=== PATIENT | female | born 1970 | race Caucasian/White ===

== ENCOUNTER 2022-12-21 21:10 | Emergency (ER) | payer OTHER ==
[2022-12-21] MEDS ORDERED: LIDOCAINE 1% W/EPI 1:100,000 50 ML MDV ONE (22:36)
--- NOTE | 2022-12-21 22:48 | EDPHYS ---
Physician Documentation [facility] Name: Leidy Texieira Age: 52 yrs Sex: Female : 1970 Arrival Date: 12/21/2022 Time: 21:10 Bed 11 Private MD: ED Physician Giorgi Rodriguez HPI: 12/21 21:36 This 52 yrs old Female presents to ER via Ambulatory with complaints of Hemorrhoids. jmm 21:36 The patient presents to the emergency department with Swelling. Onset: The jmm symptoms/episode began/occurred gradually. Is a 52-year-old female with history of hypertension the presents emerged part with complaints of rectal pain which has been ongoing for approximately a month that she attributes to a hemorrhoid. Denies fever or chills. Denies vomiting.. 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 - Social history:: Smoking status: Patient denies any tobacco usage or history of. ROS: 21:36 Constitutional: Negative for fever, chills, and weight loss, Cardiovascular: Negative jmm for chest pain, palpitations, and edema, Respiratory: Negative for shortness of breath, cough, wheezing, and pleuritic chest pain. 21:36 Abdomen/GI: Positive for rectal pain. 21:36 All other systems are negative. Exam: 21:36 Constitutional: This is a well developed, well nourished patient who is awake, alert, jmm and in no acute distress. Head/Face: atraumatic. Eyes: EOMI, no conjunctival erythema appreciated ENT: Moist Mucus Membranes Neck: Trachea midline, Supple Chest/axilla: Normal chest wall appearance and motion. Cardiovascular: Regular rate and rhythm. No edema appreciated Respiratory: Normal respirations, no respiratory distress appreciated 21:36 Back: Normal ROM Skin: General appearance color normal MS/ Extremity: Moves all extremities, no obvious deformities appreciated, no edema noted to the lower extremities Neuro: Awake and alert Psych: Behavior is normal, Mood is normal, Patient is cooperative and pleasant 21:36 Abdomen/GI: Inspection: obese Rectal exam: hemorrhoid(s), external, with inflammation. Vital Signs: 21:28 BP 143 / 57; Pulse 81; Resp 18; Temp 97.9(O); Pulse Ox 100% on R/A; Weight 90.72 kg; mb9 Height 5 ft. 8 in. ; Pain 9/10; 22:51 BP 138 / 69; Pulse 74; Resp 16; Pulse Ox 99% on R/A; mb9 21:28 Body Mass Index 30.41 (90.72 kg, 172.72 cm) 9 21:28 Pain Scale: Adult mb9 MDM: 21:36 Patient medically screened. [facility] 21:36 Differential diagnosis: hemorrhoids. Data reviewed: vital signs, nurses notes. I je considered the following discharge prescriptions or medication management in the emergency department Medications were administered in the Emergency Department. See MAR. ED course: 1 mL of lidocaine with epi was injected into the external hemorrhoid. Patient was able to tolerate the procedure well. Patient states having relief. Will treat with topical steroids and otherwise advised to follow-up with general surgery or gastroenterology for further evaluation. Administered Medications: 22:33 Drug: Lidocaine Infiltration (1 %) 20 ml Volume: 20 ml; Route: Infiltration; 9 Disposition: 12/22 07:18 Co-signature as Attending Physician, Giorgi Rodriguez MD I agree with the assessment sp4 and plan of care. I reviewed the patient's care provided by the Advanced Practice Provider and agree with the diagnosis and treatment plan. Disposition Summary: 12/21/22 22:47 Discharge Ordered Location: Home [facility] Condition: Stable [facility] Diagnosis - Residual hemorrhoidal skin tags [facility] Followup: [facility] - With: Hugh Rousseau MD - When: 2 - 3 days - Reason: Recheck today's complaints, Continuance of care, Re-evaluation by your physician Discharge Instructions: - Discharge Summary Sheet [facility] - Hemorrhoids [facility] Forms: - Medication Reconciliation Form [facility] - Thank You Letter addie - Antibiotic Education [facility] - Prescription Opioid Use [facility] - Patient Portal Instructions.htm [facility] Prescriptions: - Anusol-HC 2.5 % Topical cream with perineal applicator - apply 1 application by RECTAL route 4 times per day for 1 week; 1 unit; jmm Refills: 0, Product Selection Permitted Signatures: Frank Rosenthal PA PA jmm Breneman, Mary Beth, RN RN mb9 Giorgi Rodriguez MD MD sp4
--- NOTE | 2022-12-21 22:48 | ER ---
Nurse's Notes [facility] Name: Leidy Teixeira Age: 52 yrs Sex: Female : 1970 Arrival Date: 12/21/2022 Time: 21:10 Bed 11 Private MD: Diagnosis: Residual hemorrhoidal skin tags Presentation: 12/21 21:28 Chief complaint: Patient states: "I have this painful hemorrhoid for the past month. mb9 Nothing is making it better and it hurts to lay down or do anything now". Coronavirus screen: Vaccine status: Patient reports receiving the 2nd dose of the covid vaccine. Ebola Screen: No symptoms or risks identified at this time. Initial Sepsis Screen: Does the patient meet any 2 criteria? No. Patient's initial sepsis screen is negative. Does the patient have a suspected source of infection? No. Patient's initial sepsis screen is negative. Risk Assessment: Do you want to hurt yourself or someone else? Patient reports no desire to harm self or others. Onset of symptoms was November 2022. 21:28 Method Of Arrival: Ambulatory mb9 21:28 Acuity: BRENNAN 4 mb9 Triage Assessment: 21:30 General: Appears in no apparent distress. Behavior is cooperative. Pain: Complains of mb9 pain in buttocks. Neuro: George Agitation-Sedation Scale (RASS): 0 - Alert and Calm Level of Consciousness is awake, alert, obeys commands, Oriented to person, place, time, situation, Appropriate for age. Cardiovascular: Patient's skin is warm and dry. Respiratory: Airway is patent Respiratory effort is even, unlabored, Respiratory pattern is regular, symmetrical. GI: Reports hemorrhoids, Patient currently denies rectal bleeding. : No signs and/or symptoms were reported regarding the genitourinary system. Derm: Skin is pink, warm \\T\\ dry. Musculoskeletal: Range of motion: intact in all extremities. [employer]: 21:31 LMP N/A - Hysterectomy mb9 Historical: - Allergies: 21:29 Zithromax; mb9 21:29 Phenergan; mb9 21:29 Imitrex; mb9 - PMHx: 21:29 Hypertensive disorder; Headache; mb9 - PSHx: 21:29 Appendectomy; Total abdominal hysterectomy; Cholecystectomy; mb9 - Immunization history:: Adult Immunizations up to date. - Social history:: Smoking status: Patient denies any tobacco usage or history of. Screenin:31 [facility] ED Fall Risk Assessment (Adult) History of falling in the last 3 months, mb9 including since admission No falls in past 3 months (0 pts) Confusion or Disorientation No (0 pts) Intoxicated or Sedated No (0 pts) Impaired Gait No (0 pts) Mobility Assist Device Used No (0 pt) Altered Elimination No (0 pt) Score/Fall Risk Level 0 - 2 = Low Risk Oriented to surroundings, Maintained a safe environment, Educated pt \\T\\ family on fall prevention, incl call for assistance when getting out of bed. Abuse screen: Denies threats or abuse. Nutritional screening: No deficits noted. Tuberculosis screening: No symptoms or risk factors identified. Assessment: 22:33 Reassessment: No changes from previously documented assessment. Patient and/or family mb9 updated on plan of care and expected duration. Pain level reassessed. Patient is alert, oriented x 3, equal unlabored respirations, skin warm/dry/pink. Vital Signs: 21:28 BP 143 / 57; Pulse 81; Resp 18; Temp 97.9(O); Pulse Ox 100% on R/A; Weight 90.72 kg; mb9 Height 5 ft. 8 in. ; Pain 9/10; 22:51 BP 138 / 69; Pulse 74; Resp 16; Pulse Ox 99% on R/A; mb9 21:28 Body Mass Index 30.41 (90.72 kg, 172.72 cm) mb9 21:28 Pain Scale: Adult mb9 ED Course: 21:14 Patient arrived in ED. ja2 21:16 Frank Rosenthal PA is PHCP. m 21:16 Giorgi Rodriguez MD is Attending Physician. jmm 21:27 Maame Begum, SCOOTER is Primary Nurse. mb9 21:28 Arm band placed on. mb9 21:29 Triage completed. mb9 21:31 Placed in gown. Bed in low position. Call light in reach. Side rails up X 1. Client mb9 placed on continuous cardiac and pulse oximetry monitoring. NIBP monitoring applied. 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 mb9 22:45 Hugh Rousseau MD is Referral Physician. jmm 22:51 Patient did not have IV access during this emergency room visit. mb9 Administered Medications: 22:33 Drug: Lidocaine Infiltration (1 %) 20 ml Volume: 20 ml; Route: Infiltration; mb9 Medication: 21:32 VIS not applicable for this client. mb9 Outcome: 22:47 Discharge ordered by MD. wooten 22:51 Discharged to home ambulatory. mb9 22:51 Condition: stable 22:51 Discharge instructions given to patient, Instructed on discharge instructions, follow up and referral plans. Demonstrated understanding of instructions, follow-up care, medications, Prescriptions given X 1. 22:54 Patient left the ED. mb9 Signatures: Frank Rosenthal PA PA jmm Alexander, Jessica ja2 Breneman, Mary Beth, RN RN mb9 Corrections: (The following items were deleted from the chart) 22:34 21:32 No provider procedures requiring assistance completed. mb9 mb9
[2022-12-22 00:23] VITALS: TEMP 97.9
[2022-12-22 00:25] VITALS: BP 138/69; O2SAT 99
== END 2022-12-21 22:54 | disposition home or self-care (01) ==
LOC: ER 21:10
DX: K64.4 Residual hemorrhoidal skin tags (principal); Z88.8 Allergy status to other drugs, medicaments and biological substances

== ENCOUNTER 2023-01-17 23:54 | Emergency (ER) | payer OTHER ==
--- OUTSIDE RECORDS SUMMARY | 2023-01-17 23:58 | XMS REPORT | Continuity of Care Document ---
:1970 Author Organization [facility] t Address [address] [place] [address] Care Team Providers Name Role Phone Jake Brothers Primary Care Physician Deon Pino MD Attending Clinician Randy Attending Clinician Unavailable Deon Pino MD Admitting Clinician Randy Admitting Clinician Unavailable Payers Payer Name Policy Type Policy Number Effective Date Expiration Date S soei [facility] [id number] 2020 00:00:00 [facility] [id number] 2018 00:00:00 Problems Condition Condition Condition Status Onset Resolution Last Treating Co mments Source Name Details Category Date Date Treatment Clinician Date Complex Complex Disease Active [place] tear of tear of 1-11 Health medial medial 00:00: meniscus meniscus 00 of left of left knee as knee as current current injury injury Moderate Moderate Problem Active [facility] recurrent Recurrent 2-07 Fami 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:00: Practic depression Depression 00 e Multinodul Multinodul Problem Active V illage ar goiter ar Goiter -24 Fami ly 00:00: Practic 00 e Helicobact Helicobact Problem Active V illage er-associa er-associa 5-14 Alem miranda ruben 00:00: Practic disease Disease 00 e Abnormal Abnormal Problem Active [facility] ge involuntar Involuntar 02-11 Fa devon y movement y Movement 00:00: Pr actic 00 e Impaired Impaired Problem Active [facility] ge fasting Fasting 02-11 Family glycemia Glycemia 00:00: Practi c 00 e Irritable Irritable Problem Active Amanda evelia bowel Bowel 02-11 Family syndrome Syndrome 00:00: Practi c 00 e Low Low Problem Active [place] compliance Compliance 02-11 Fa devon bladder Bladder 00:00: Practic 00 e Migraine Migraine Problem Active Rodriguez ge 06-12 Family 00:00: Practic 00 e Asthma Asthma Problem Active 2022-07-14 Wilian lucho (disorder) (disorder) 08:01:36 l Active [place] Problem 07/14/2022 [facility] Depressive Depressiv Problem Active 2022-07-14 Memoria disorder e disorder 08:01:36 l (disorder) (disorder) He rmann Active Problem 07/14/2022 [facility] Hypertensi Hypertens Problem Active 2022-07-14 Memoria ve divya 08:01:36 l disorder, disorder, Herm holly systemic systemic arterial arterial (disorder) (disorder) Active Problem 07/14/2022 [facility] Weight Weight Problem Active 2022-07-14 Wilian lucho loss loss 08:01:36 l advised advised Blake (regime/th (regime/th erapy) erapy) Active Problem 07/14/2022 [facility] Acid Acid Problem Active 2022-07-14 Memor ia reflux reflux 08:01:36 l (finding) (finding) Herm holly Active Problem 07/14/2022 [facility] Anxiety Anxiety Problem Active 2022-07-14 Me moria (finding) (finding) 08:01:36 l Active [place] Problem 07/14/2022 [facility] History of Past Illness Condition Condition Condition Status Onset Resolution Last Treating Co mments Source Name Details Category Date Date Treatment Clinician Date Complex Complex Problem 2022-07-14 2022-07-14 Memoria tear of tear of 2- 08:01:36 08:01:36 l medial medial 18:00: Blake meniscus, meniscus, 00 current current injury, injury, left knee, left knee, initial initial encounter encounter 07/13/2022 07/14/2022 [facility] Allergies, Adverse Reactions, Alerts Allergy Allergy Status Severity Reaction(s) Onset Inactive Treating Comm ents Source Name Type Date Date Clinician AZITHROM Allergy Active [facility] YCIN to 02-11 Family [facility] 00:00: Practic e 00 e Imitrex Allergy Active [facility] to 02-11 [facility] 00:00: Practic e 00 e azithrom azithrom Active Moderate Weal Wilian lucho ycin ycin (disorder) l [place] prometha prometha Active Severe Anaphylaxis M emoria zine zine (disorder) l Blake SUMAtrip SUMAtrip Active Severe Anaphylaxis M emoria bolton bolton (disorder) l [place] Phenerga Allergy Active Anaphylaxis Vi llage n to Family substan Practic e e Social History Social Habit Start Date Stop Date Quantity Comments Source Exposure to 2022-07-12 2022-07-22 Not sure [facility] SARS-CoV-2 (event) 00:00:00 08:22:00 Alcohol intake 2022-07-22 2022-07-22 Current drinker of [facility] 00:00:00 00:00:00 alcohol (finding) Cigarettes smoked 2022-05-04 2022-05-04 [facility] (pack per 00:00:00 00:00:00 day) - Reported Cigarette pack-years 2022-05-04 2022-05-04 [facility] 00:00:00 00:00:00 Tobacco use and 2022-05-04 2022-05-04 Smokeless tobacco [facility] exposure 00:00:00 00:00:00 non-user Alcohol Comment 2022-05-04 2022-05-04 only some times [facility] 00:00:00 00:00:00 socially History of tobacco 1990-09-10 1993-09-10 Cigarette Smoker [facility] use 00:00:00 00:00:00 [birth year] F [facility] 00:00:00 00:00:00 Smoking Status Start Date Stop Date Source Never Smoker [facility] Family P yin Ex-smoker 2022-05-04 00:00:00 2022-05-04 00:00:00 [facility] Medications Ordered Filled Start Stop Current Ordering Indication Dosage Frequency Signature Comments Components Source Medication Medication Date Date Medication? Clinician (SIG) Name Name morphine 0 No 1 mg = 0.1 Mem oria 2-01 mL, l 16:32: Injection, IV Push, q5min PRN for Pain Moderate (4-6), order duration: 5 dose(s)/ti me(s), first dose 07/13/22 10:32:00 [employer], stop date Limited # of times Demerol HCl No 12.5 mg = M emoria 2-01 0.5 mL, l 16:32: Injection, IV Push, q5min PRN for Pain Mild (1-3), order duration: 4 dose(s)/ti me(s), first dose 07/13/22 10:32:00 [employer], stop date Limited # of times Misc 0 No 750 mL, Memoria Medication 2-01 Soln-IV, l 16:14: IV, Once, first dose 07/13/22 10:14:00 [employer], stop date 07/13/22 10:14:00 [employer] ondansetron No 4 mg = 2 Me moria 2-01 mL, l 15:46: Injection, IV, Once, first dose 07/13/22 9:46:00 [employer], stop date 07/13/22 9:46:00 [employer] dexamethaso No 8 mg = 2 Me moria ne 2-01 mL, l 15:46: Injection, IV, Once, first dose 07/13/22 9:46:00 [employer], stop date 07/13/22 9:46:00 [employer] fentaNYL 2022-0 No 100 mcg = Wilian lucho 2-01 2 mL, l 15:45: Injection, IV, Once, first dose 07/13/22 9:45:00 [employer], stop date 07/13/22 9:45:00 [employer] ceFAZolin 0 No 2 gm, Memoria 2-01 Powder-Inj l 15:35: , IV, Once, first dose 07/13/22 9:35:00 [employer], stop date 07/13/22 9:35:00 [employer] propofol 2022-0 No 100 mg = Memor ia 2-01 10 mL, l 15:30: Emulsion, IV, Once, first dose 07/13/22 9:30:00 [employer], stop date 07/13/22 9:30:00 [employer] phenylephri 2022-0 No 0.1 mg = Me moria ne 2-01 0.01 mL, l 15:30: Injection, IV, Once, first dose 07/13/22 9:30:00 [employer], stop date 07/13/22 9:30:00 [employer] fentaNYL 2022-0 No 100 mcg = Wilian lucho 2-01 2 mL, l 15:15: Injection, IV, Once, first dose 07/13/22 9:15:00 [employer], stop date 07/13/22 9:15:00 [employer] propofol No 200 mg = Memor ia 2-01 20 mL, l 15:15: Emulsion, IV, Once, first dose 07/13/22 9:15:00 [employer], stop date 07/13/22 9:15:00 [employer] midazolam No 2 mg = 2 Wilian lucho 2-01 mL, l 15:10: Injection, IV, Once, first dose 07/13/22 9:10:00 [employer], stop date 07/13/22 9:10:00 [employer] ceFAZolin No 2 gm, Memoria 2-01 Soln-IV, l 15:00: IV Piggyback, Once, infuse over 30 minutes, first dose 07/13/22 9:00:00 [employer], stop date 07/13/22 9:00:00 [employer], Prophylaxi s LR 1,000 mL 0 No 1,000 mL, M emoria 2-01 IV, 100 l 14:09: mL/hr, start date 07/13/22 8:09:00 [employer], For Adults, 2.17, m2 Pain Ease 2022-0 No 1 sprays, Mem oria topical 2-01 [place], l spray 14:00: TOP, Once, Robby n first dose 07/13/22 8:00:00 [employer], stop date 07/13/22 8:00:00 [employer], Apply topically for 4 - 10 seconds from a distance of 3 - 7 inches from the procedure site tiZANidine Yes [id number] 4mg Q6H Take 1 UT (Zanaflex) 1-27 tablet (4 Heal th 4 MG tablet 00:00: mg total) 00 by mouth every 6 (six) hours if needed for muscle spasms for up to 10 days. Albuterol Yes 1 puffs, Wilian lucho (Eqv-ProAir 1-25 MDI, q6hr, l HFA) 90 18:59: 0 [place] mcg/inh 00 Refill(s) inhalation aerosol LORazepam Yes 10 mg, Memori a 1-25 Oral, PRN l 18:58: other (see [place] 00 comment), 0 Refill(s) Mounjaro Yes 12.5 mg, Memor ia 12.5 mg/0.5 1-25 Subcutaneo l mL 18:57: us, [place] subcutaneou 00 qMonday, 0 s solution Refill(s) Paxil Yes 30 mg, Memoria 1-25 Oral, l 18:56: Daily, 0 [place] 00 Refill(s) NexIUM 0 Yes 20 mg, Memoria 1-25 Oral, l 18:56: Daily, 0 [place] 00 Refill(s) hydrochloro Yes 1 tabs, Mem oria thiazide-ol 1-25 Oral, l mesartan 18:55: Daily, 0 Shannan nn 12.5 mg-20 00 Refill(s) mg oral tablet Singulair Yes 10 mg, Memori a 1-25 Oral, l 18:55: Daily, 0 [place] 00 Refill(s) cetirizine Yes 10 mg, Memor ia 1-25 Oral, l 18:55: Daily, 0 [place] 00 Refill(s) tiZANidine 2021-06 Yes [id number] 4mg Take 1 UT (Zanaflex) - [id number] tablet (4 He alth 4 MG tablet 00:00: mg total) 00 by mouth every 8 (eight) hours if needed for muscle spasms for up to 10 days. tiZANidine 2021-06 Yes [id number] 4mg Take 1 UT (Zanaflex) - [id number] tablet (4 He alth 4 MG tablet 00:00: mg total) 00 by mouth every 8 (eight) hours if needed for muscle spasms for up to 10 days. diclofenac 2021-06- No [id number] 50mg Take 1 UT (Voltaren) 07-31 [id number] tablet (50 Health 50 MG EC 00:00: 05:59 mg total) tablet 00 :00 by mouth in the morning and 1 tablet (50 mg total) in the evening. Take with meals. Do not crush, chew, or split.. Mounjaro 10 2021-06 Yes UT MG/0.5ML 1-17 Health solution 00:00: pen-injecto 00 r Mounjaro 10 2021-06 Yes UT MG/0.5ML 1-17 Health solution 00:00: pen-injecto 00 r montelukast 2021-06 Yes 10mg Take 10 mg UT (Singulair) 0-28 by mouth Heal th 10 MG 00:00: every tablet 00 night. PARoxetine 2021-06 Yes 20mg QD Take 20 mg U T (Paxil) 20 0-28 by mouth 1 Hea lth MG tablet 00:00: (one) time 00 each day. montelukast 2021-06 Yes 10mg Take 10 mg UT (Singulair) 0-28 by mouth Heal th 10 MG 00:00: every tablet 00 night. PARoxetine 2021-06 Yes 20mg QD Take 20 mg U T (Paxil) 20 0-28 by mouth 1 Hea lth MG tablet 00:00: (one) time 00 each day. olmesartan- 2021-06 Yes 1{tbl} Take 1 UT hydroCHLORO 0-03 tablet by [facility] thiazide 00:00: mouth 1 (BENIcar 00 (one) time HCT) each day 20-12.5 MG in the tablet morning. olmesartan- 2021-06 Yes 1{tbl} Take 1 UT hydroCHLORO 0-03 tablet by [facility] thiazide 00:00: mouth 1 (BENIcar 00 (one) time HCT) each day 20-12.5 MG in the tablet morning. lisinopril- Yes 1{tbl} QD Take 1 UT hydroCHLORO 7-30 tablet by [facility] thiazide 00:00: mouth 1 20-12.5 MG 00 (one) time tablet each day. lisinopril- 2-0 Yes 1{tbl} QD Take 1 UT hydroCHLORO 7-30 tablet by [facility] thiazide 00:00: mouth 1 20-12.5 MG 00 (one) time tablet each day. albuterol albuterol No albuterol [place] sulfate 2.5 sulfate 2.5 sulfate Family mg/3 mL mg/3 mL 2.5 mg/3 Pract ic (0.083 %) (0.083 %) mL (0.083 e solution solution %) for for solution nebulizatio nebulizatio for n USE 1 n USE 1 nebulizati VIAL IN VIAL IN on USE 1 NEBULIZER NEBULIZER VIAL IN THREE TIMES THREE TIMES NEBULIZER DAILY DAILY THREE TIMES DAILY albuterol albuterol No albuterol [facility] sulfate HFA sulfate HFA sulfate Family 90 90 HFA 90 Practic mcg/actuati mcg/actuati mcg/actuat e on aerosol on aerosol ion inhaler inhaler aerosol INHALE 2 INHALE 2 inhaler PUFFS BY PUFFS BY INHALE 2 MOUTH EVERY MOUTH EVERY PUFFS BY 4 TO 6 4 TO 6 MOUTH HOURS HOURS EVERY 4 TO NEEDED FOR NEEDED FOR 6 HOURS SHORTNESS SHORTNESS NEEDED FOR OF BREATH OF BREATH SHORTNESS OF BREATH lorazepam lorazepam No 1 BID lorazepam [facility] 0.5 mg 0.5 mg 0.5 mg Family tablet Take tablet Take tablet Practic 1 tablet 1 tablet Take 1 e twice a day twice a day tablet by oral by oral twice a route as route as day by needed. needed. oral route as needed. montelukast montelukast No montelukas [facility] 10 mg 10 mg t 10 mg Family tablet TAKE tablet TAKE tablet Practic 1 TABLET BY 1 TABLET BY TAKE 1 e MOUTH ONCE MOUTH ONCE TABLET BY DAILY DAILY MOUTH ONCE DAILY sertraline sertraline No 1 Q1D sertraline [facility] 100 mg 100 mg 100 mg Family tablet Take tablet Take tablet Practic 1 tablet 1 tablet Take 1 e every day every day tablet by oral by oral every day route. route. by oral route. Ubrelvy 100 Ubrelvy 100 No Ubrelvy [place] mg tablet mg tablet 100 mg Fam yesy TAKE 1 TAKE 1 tablet Practic TABLET BY TABLET BY TAKE 1 e MOUTH AT MOUTH AT TABLET BY ONSET OF ONSET OF MOUTH AT MIGRAINE MIGRAINE ONSET OF HEADACHE HEADACHE MIGRAINE THEN MAY THEN MAY HEADACHE REPEAT DOSE REPEAT DOSE THEN MAY IN 2 HOURS IN 2 HOURS REPEAT IF HEADACHE IF HEADACHE DOSE IN 2 HAS NOT HAS NOT HOURS IF BEEN BEEN HEADACHE RESOLVED RESOLVED HAS NOT BEEN RESOLVED valacyclovi valacyclovi No valacyclov [facility] r 1 gram r 1 gram ir 1 gram Fa [place] tablet Take tablet Take tablet Practic 2 tab po 2 tab po Take 2 tab e BID x 1 day BID x 1 day po BID x 1 prn prn day prn outbreaks outbreaks outbreaks Immunizations Ordered Immunization Filled Immunization Date Status Commen ts Source Name Name COVID-19, mRNA, COVID-19, mRNA, 2021-05-24 Completed Vill age Family LNP-S, PF, 100 LNP-S, PF, 100 00:00:00 Practi ce mcg/0.5 mL dose mcg/0.5 mL dose (Moderna) (Moderna) COVID-19, mRNA, COVID-19, mRNA, 2020-10-20 Completed Vill age Family LNP-S, PF, 100 LNP-S, PF, 100 00:00:00 Practi ce mcg/0.5 mL dose mcg/0.5 mL dose (Moderna) (Moderna) COVID-19, mRNA, COVID-19, mRNA, 2020-09-22 Completed Vill age Family LNP-S, PF, 100 LNP-S, PF, 100 00:00:00 Practi ce mcg/0.5 mL dose mcg/0.5 mL dose (Moderna) (Moderna) Tdap Tdap 2013-12-23 [facility] 00:00:00 Practice Vital Signs Vital Name Observation Time Observation Value Comments Source BP Diastolic 2021-07-19 00:00:00 87 mm[Hg] [facility] Height 2021-07-19 00:00:00 69 [in_i] [facility] BMI (Body Mass Index) 2021-07-19 00:00:00 38.4 kg/m2 [facility] BP Systolic 2021-07-19 00:00:00 139 mm[Hg] [facility] Body Weight 2021-07-19 00:00:00 260 [lb_av] [facility] Heart Rate 2022-07-13 16:40:00 [facility] Respitory Rate 2022-07-13 16:40:00 Memori al [place] Systolic (mm Hg) 2022-07-13 16:40:00 Wilian rial [place] Diastolic (mm Hg) 2022-07-13 16:40:00 Mem orial [place] Heart Rate 2022-07-13 16:30:00 [facility] [place] Respitory Rate 2022-07-13 16:30:00 Memori al [place] Systolic (mm Hg) 2022-07-13 16:30:00 Wilian rial [place] Diastolic (mm Hg) 2022-07-13 16:30:00 Mem orial [place] Heart Rate 2022-07-13 16:20:00 [facility] [place] Respitory Rate 2022-07-13 16:20:00 Memori al [place] Systolic (mm Hg) 2022-07-13 16:20:00 Wilian rial [place] Diastolic (mm Hg) 2022-07-13 16:20:00 Mem orial [place] Temperature Oral (F) 2022-07-13 16:05:00 36.7 [facility] [place] Temperature Oral (F) 2022-07-13 13:48:00 36.1 [facility] [place] Height 2022-07-13 13:48:00 173 cm [facility] [place] Weight 2022-07-13 13:48:00 [facility] [place] Height 2022-07-06 18:46:00 173 cm [facility] [place] Weight 2022-07-06 18:46:00 [facility] [place] Temperature Oral (F) 2022-07-06 18:46:00 35.6 [facility] Procedures Procedure Date / Time Performing Clinician Source Performed mass removed under left [facility] breast Appendectomy [facility] [place] Cholecystectomy [facility] [place] knee scope [facility] Plan of Care Planned Activity Planned Date Details Comments Source Diagnostic Test 2021-07-19 erythrocyte [place] Fami ly Pending 00:00:00 sedimentation rate by Practi ce westergren method [code = erythrocyte sedimentation rate by westergren method] Diagnostic Test 2021-07-19 ALONZO (antinuclear [place] Family Pending 00:00:00 antibodies) titer + Practice pattern, ifa, serum [code = ALONZO (antinuclear antibodies) titer + pattern, ifa, serum] Diagnostic Test 2021-07-19 uric acid, serum or Rodriguez ge Family Pending 00:00:00 plasma [code = uric Practice acid, serum or plasma] Diagnostic Test 2021-07-19 arthritis panel [code Amanda evelia Family Pending 00:00:00 = arthritis panel] Practice Instructions [facility] Encounters Start End Encounter Admission Attending Care Care Encounter Source Date/Time Date/Time Type Type Clinicians Facility Department ID 2022-07-15 Outpatient [facility] [id number] [place] 13:46:[id number] [facility] 2022-07-04 Outpatient [facility] [id number] [place] 09:01:[id number] [facility] 2022-06-17 Outpatient [facility] [id number] [place] 16:49:[id number] [facility] 2022-05-30 Outpatient [facility] [id number] [place] 18:34:[id number] [facility] 2022-05-04 Outpatient [facility] [id number] [place] 13:25:[id number] [facility] 2022-05-02 Outpatient [facility] [id number] [place] 10:18:[id number] [facility] 2022-04-28 Outpatient [facility] [id number] [place] 11:10:[id number] [facility] 2022-04-27 Outpatient [facility] [id number] [place] 09:52:[id number] [facility] 2022-04-26 Outpatient [facility] [id number] [place] 13:20:[id number] [facility] 2022-07-22 2022-07-22 Office MIRIAM Pino [id number] [place] 09:00:00 09:23:20 Visit Deon SECO [id number] [facility] [id number] 2022-07-13 2022-07-13 Outpatient [facility] [id number] Memoria 12:39:28 17:00:00 [place] [facility] 2022-07-13 2022-07-13 [id number] Memoria 06:39:28 11:00:00 marina Lozano 2022-07-13 2022-07-13 Outpatient Jl [id number] 06:39:28 11:00:00 Deon Morrow 2022-07-13 2022-07-13 Outpatient JL [facility] [id number] [place] 07:00:00 07:00:00 [facility] 2022-06-22 2022-06-22 Office MIRIAM Pino ORTHO [id number] [place] 14:20:00 14:35:49 Visit Deon SOLIS [id number] [facility] [id number] 2022-05-04 2022-05-04 Outpatient JL [facility] [id number] [place] 13:50:00 14:10:51 [facility] 2022-05-04 2022-05-04 Outpatient [facility] [id number] [place] 00:00:00 00:00:00 [facility] 2021-07-28 2021-07-28 Outpatient Carpenter_D VFP VFP [id number] [facility] 12:23:00 12:23:00 [id number] Family Practic e 2021-07-21 2021-07-21 Outpatient Carpenter_D VFP VFP [id number] [facility] 10:46:00 10:46:00 [id number] Family Practic e 2021-07-19 2021-07-19 Aryan Carpenter_D VFP [place] - [id number] [facility] 00:00:00 00:00:00 JONAH Crawford: [facility] [id number] [place] [id number] Medical - Prac c Elma [place]IGHT_[place] [address] , Ph. 2021-04-20 2021-04-20 Outpatient Carpenter_D VFP VFP [id number] [facility] 05:35:00 05:35:00 [id number] Family Practic e 2021-02-08 2021-02-08 Outpatient VFP VFP [id number] [facility] 09:42:00 09:42:00 [id number] Family Practic e Results Test Description Test Time Test Comments Results Result Comments Source LABORATORY 2022-07-11 19:52:00 Test Item Value Reference Range Interpretation Comme nts Sodium Level (test code = Sodium Level) 139 [id number] 19:52:00 Test Item Value Reference Range Interpretation Comments Potassium Level (test code = Potassium 4.0 Level) [id number] 19:52:00 Test Item Value Reference Range Interpretation Comments Chloride Level (test code = Chloride 104 Level) [id number] 19:52:00 Test Item Value Reference Range Interpretation Comments Total Carbon Dioxide Level (test code = 30 Total Carbon Dioxide Level) [id number] 19:52:00 Test Item Value Reference Range Interpretation Comments AGAP (test code = AGAP) 9.0 [place] [id number] 19:52:00 Test Item Value Reference Range Interpretation Comments Glucose Lvl (test code = Glucose Lvl) 98 [id number] 19:52:00 Test Item Value Reference Range Interpretation Comments Creatinine (test code = Creatinine) 0.81 [id number] 19:52:00 Test Item Value Reference Range Interpretation Comments BUN (test code = BUN) 14 [id number] 19:52:00 Test Item Value Reference Range Interpretation Comments BUN/Creat Ratio (test code = BUN/Creat 17 1 Ratio) [id number] 19:52:00 Test Item Value Reference Range Interpretation Comments Protein Total (test code = Protein 7.2 Total) [id number] 19:52:00 Test Item Value Reference Range Interpretation Comments Albumin Lvl (test code = Albumin Lvl) 3.9 [id number] 19:52:00 Test Item Value Reference Range Interpretation Comments Globulin (test code = Globulin) 3.3 [id number] 19:52:00 Test Item Value Reference Range Interpretation Comments Alb/Glob Ratio (test code = Alb/Glob 1.2 1 Ratio) [id number] 19:52:00 Test Item Value Reference Range Interpretation Comments Calcium Level (test code = Calcium 9.3 Level) [id number] 19:52:00 Test Item Value Reference Range Interpretation Comments ALT (test code = ALT) 28 [facility] [id number] 19:52:00 Test Item Value Reference Range Interpretation Comments AST (test code = AST) 10 [facility] Sou[id number] 19:52:00 Test Item Value Reference Range Interpretation Comments Bilirubin Total (test code = Bilirubin 0.5 Total) [id number] 19:52:00 Test Item Value Reference Range Interpretation Comments Alk Phos (test code = Alk Phos) 78 [facility] [id number] 19:52:00 Test Item Value Reference Range Interpretation Comments eGFR (test code = eGFR) 88 [facility] [id number] 19:52:00 Test Item Value Reference Range Interpretation Comments Hemoglobin (test code = Hemoglobin) 12.3 [place] [id number] 19:52:00 Test Item Value Reference Range Interpretation Comments Hematocrit (test code = Hematocrit) 35.4 [facility]
[2023-01-18 01:47] LABS: Protime INR 0.95
[2023-01-18 01:48] LABS: Hematocrit 34.6 % (36.0-45.0); MCV 78.4 fL (80-100); MPV 7.8 fL (7.6-11.3); Platelets 356 thou/uL (152-406); RBC Red Blood Cell Count 4.41 M/uL (3.86-4.86)
[2023-01-18 02:06] LABS: Albumin 3.4 g/dL (3.4-5.0); Bilirubin Total 0.3 mg/dL (0.2-1.0); Potassium 3.4 mEq/L (3.5-5.1); Protein, Total 7.2 g/dL (6.4-8.2)
--- NOTE | 2023-01-18 02:47 | EDPHYS ---
Physician Documentation [facility] Name: Leidy Teixeira Age: 52 yrs Sex: Female : 1970 Arrival Date: 01/17/2023 Time: 23:54 Bed 18 Private MD: ED Physician Giorgi Rodriguez HPI: 01/18 00:12 This 52 yrs old Female presents to ER via Ambulatory with complaints of POST sp4 SURGERY HEMRRHOID BLEEDING. 02:47 52-year-old female presents with anal bleeding with reported recent hemorrhoidectomy. sp4 02:49 0Patient reports her hemorrhoidectomy was on 01/12/2023.. Earlier in the day patient sp4 went to have a bowel movement she had painful bowel movement and developed bleeding into the commode. Patient reported at this time bleeding has stopped and she is wearing a pad. Patient states she takes Colace 3 times a day. . Historical: - Allergies: 00:12 Imitrex; pf1 00:12 Phenergan; pf1 00:12 Zithromax; pf1 - PMHx: 00:12 headache; Hypertensive disorder; pf1 - PSHx: 00:12 Appendectomy; Cholecystectomy; Total abdominal hysterectomy; Hemorrhoidectomy; pf1 bilateral knee repair; - Immunization history:: Adult Immunizations up to date, Last tetanus immunization: < 10 years ago Flu vaccine is not up to date. - Social history:: Smoking status: Patient denies any tobacco usage or history of. Patient uses alcohol, occasionally. Patient/guardian denies using street drugs. - Family history:: not pertinent. ROS: 02:49 Constitutional: Negative for fever, chills, and weight loss, Eyes: Negative for injury, sp4 pain, redness, and discharge, ENT: Negative for injury, pain, and discharge, Abdomen/GI: Negative for abdominal pain, nausea, vomiting, diarrhea, and constipation, positive anal bleeding. 02:49 All other systems are negative. Exam: 02:49 Constitutional: This is a well developed, well nourished patient who is awake, alert, sp4 and in no acute distress. Head/Face: Normocephalic, atraumatic. Eyes: Pupils equal round and reactive to light, extra-ocular motions intact. Lids and lashes normal. Conjunctiva and sclera are not injected. Cornea within normal limits. Periorbital areas with no swelling, redness, or edema. ENT: Nares patent. No nasal discharge, no septal abnormalities noted. Tympanic membranes are normal and external auditory canals are clear. Oropharynx with no redness, swelling, or masses, exudates, or evidence of obstruction, uvula midline. Mucous membranes moist. Neck: Trachea midline, no thyromegaly or masses palpated, and no cervical lymphadenopathy. Supple, full range of motion without nuchal rigidity, or vertebral point tenderness. Chest/axilla: Normal chest wall appearance and motion. Nontender with no deformity. No lesions are appreciated. Cardiovascular: Regular rate and rhythm with a normal S1 and S2. No gallops, murmurs, or rubs. Normal PMI, no JVD. No pulse deficits. Respiratory: Lungs have equal breath sounds bilaterally, clear to auscultation and percussion. No rales, rhonchi or wheezes noted. No increased work of breathing, no retractions or nasal flaring. Abdomen/GI: Soft, non-tender, with normal bowel sounds. No distension or tympany. No guarding or rebound. No evidence of tenderness throughout. Rectal exam reveals postoperative incisions around the anal sphincter. No signs of active bleeding, no sign of recurrent hemorrhoids. There is perianal tenderness secondary to recent surgery. Back: No spinal tenderness. No costovertebral tenderness. Skin: Warm, dry with normal turgor. Normal color with no rashes, no lesions, and no evidence of cellulitis. MS/ Extremity: Pulses equal, no cyanosis. Neurovascular intact. Full, normal range of motion. Neuro: Awake and alert, GCS 15, oriented to person, place, time, and situation. Cranial nerves II-XII grossly intact. Motor strength 5/5 in all extremities. Sensory grossly intact. Psych: Awake, alert, with orientation to person, place and time. Behavior, mood, and affect are within normal limits Vital Signs: 00:03 BP 107 / 68; Pulse 72; Resp 16; Temp 98.1; Pulse Ox 97% on R/A; Weight 106.59 kg; pf1 Height 5 ft. 9 in. ; Pain 7/10; 01:30 BP 113 / 50; Pulse 70; Resp 20; Pulse Ox 98% ; vc1 02:22 BP 99 / 58; Pulse 72; Resp 18; Pulse Ox 97% ; vc1 03:20 BP 107 / 53; Pulse 70; Resp 18 S; Pulse Ox 98% on R/A; ha1 00:03 Body Mass Index 34.70 (106.59 kg, 175.26 cm) pf1 00:03 Pain Scale: Adult pf1 MDM: 00:25 Patient medically screened. sp4 02:49 Differential Diagnosis Postoperative bleeding, recurrence of hemorrhoid, . Data sp4 reviewed: vital signs, nurses notes, old medical records, lab test result(s). ED course: On exam there is no active bleeding, blood counts are reasonable at 11.5, hemoglobin. ED course: Patient stable for discharge home she will be advised to see her surgeon in 5 to 6 days for repeat exam. 01/18 00:26 Order name: CBC w/o diff; Complete Time: :34 sp4 01/18 00:26 Order name: CMP; Complete Time: :34 sp4 01/18 00:26 Order name: PT-INR; Complete Time: 01:50 sp4 01/18 00:26 Order name: Saline Lock; Complete Time: 01:03 sp4 Administered Medications: No medications were administered Disposition Summary: 01/18/23 02:46 Discharge Ordered Location: Home sp4 Problem: new sp4 Symptoms: have improved sp4 Condition: Stable sp4 Diagnosis - Postoperative bleeding, history of hemorrhoidectomy, anal and rectal bleeding sp4 Followup: sp4 - With: Bryon Matthews MD - When: 5 - 6 days - Reason: Recheck today's complaints Discharge Instructions: - Discharge Summary Sheet sp4 - Surgical Procedures for Hemorrhoids, Care After sp4 Forms: - Patient Portal Instructions sp4 Signatures: Dispatcher [employer] Naheed Jay, RN RN pf1 Giorgi Rodriguez MD MD sp4
--- NOTE | 2023-01-18 02:47 | ER ---
Nurse's Notes [facility] Name: Leidy Teixeira Age: 52 yrs Sex: Female : 1970 Arrival Date: 01/17/2023 Time: 23:54 Bed 18 Private MD: Diagnosis: Postoperative bleeding, history of hemorrhoidectomy, anal and rectal bleeding Presentation: 01/18 00:03 Chief complaint: Patient states: rectal pain of 7 and heaving bleeding with clots after pf1 a bowel movement,onset [id number] with symptoms of nausea and weakness, S/P having hemorrhoid surgery by Dr. Matthews on 01/12/23. Coronavirus screen: Vaccine status: Patient reports receiving the 2nd dose of the covid vaccine. 3 doses of Moderna Client denies travel out of the [place] in the last 14 days. At this time, the client does not indicate any symptoms associated with coronavirus-19. Ebola Screen: Patient negative for fever greater than or equal to 101.5 degrees Fahrenheit, and additional compatible Ebola Virus Disease symptoms. Initial Sepsis Screen: Does the patient meet any 2 criteria? No. Patient's initial sepsis screen is negative. Does the patient have a suspected source of infection? No. Patient's initial sepsis screen is negative. Risk Assessment: Do you want to hurt yourself or someone else? Patient reports no desire to harm self or others. 00:03 Method Of Arrival: Ambulatory pf1 00:03 Acuity: BRENNAN 3 pf1 03:24 Onset of symptoms was January 17, 2023. ha1 Triage Assessment: 02:19 General: Appears in no apparent distress. uncomfortable, Behavior is calm, cooperative, vc1 appropriate for age. Pain: Denies pain. EENT: No deficits noted. No signs and/or symptoms were reported regarding the EENT system. Neuro: Level of Consciousness is awake, alert, confused, Oriented to person, place, time, situation, Appropriate for age. Cardiovascular: No deficits noted. Respiratory: Airway is patent Respiratory effort is even, unlabored, Respiratory pattern is regular, symmetrical. GI: No deficits noted. No signs and/or symptoms were reported involving the gastrointestinal system. : No deficits noted. No signs and/or symptoms were reported regarding the genitourinary system. Derm: No deficits noted. No signs and/or symptoms reported regarding the dermatologic system. Musculoskeletal: No deficits noted. No signs and/or symptoms reported regarding the musculoskeletal system. Historical: - Allergies: 00:12 Imitrex; pf1 00:12 Phenergan; pf1 00:12 Zithromax; pf1 - PMHx: 00:12 headache; Hypertensive disorder; pf1 - PSHx: 00:12 Appendectomy; Cholecystectomy; Total abdominal hysterectomy; Hemorrhoidectomy; pf1 bilateral knee repair; - Immunization history:: Adult Immunizations up to date, Last tetanus immunization: < 10 years ago Flu vaccine is not up to date. - Social history:: Smoking status: Patient denies any tobacco usage or history of. Patient uses alcohol, occasionally. Patient/guardian denies using street drugs. - Family history:: not pertinent. Screenin:30 [facility] ED Fall Risk Assessment (Adult) History of falling in the last 3 months, vc1 including since admission No falls in past 3 months (0 pts) Confusion or Disorientation No (0 pts) Intoxicated or Sedated No (0 pts) Impaired Gait No (0 pts) Mobility Assist Device Used No (0 pt) Altered Elimination No (0 pt) Score/Fall Risk Level 0 - 2 = Low Risk Oriented to surroundings, Maintained a safe environment, Educated pt \T\ family on fall prevention, incl call for assistance when getting out of bed. Abuse screen: Denies threats or abuse. Nutritional screening: No deficits noted. Tuberculosis screening: No symptoms or risk factors identified. Assessment: 03:22 Reassessment: Patient and/or family updated on plan of care and expected duration. Pain ha1 level reassessed. Patient is alert, oriented x 3, equal unlabored respirations, skin warm/dry/pink. Vital Signs: 00:03 BP 107 / 68; Pulse 72; Resp 16; Temp 98.1; Pulse Ox 97% on R/A; Weight 106.59 kg; pf1 Height 5 ft. 9 in. ; Pain 7/10; 01:30 BP 113 / 50; Pulse 70; Resp 20; Pulse Ox 98% ; vc1 02:22 BP 99 / 58; Pulse 72; Resp 18; Pulse Ox 97% ; vc1 03:20 BP 107 / 53; Pulse 70; Resp 18 S; Pulse Ox 98% on R/A; ha1 00:03 Body Mass Index 34.70 (106.59 kg, 175.26 cm) pf1 00:03 Pain Scale: Adult pf1 ED Course: 01/17 23:59 Patient arrived in ED. kj1 01/18 00:12 Giorgi Rodriguez MD is Attending Physician. sp4 00:12 Triage completed. pf1 00:30 Arm band placed on right wrist. vc1 01:00 Patient has correct armband on for positive identification. Bed in low position. Pulse vc1 ox on. NIBP on. 02:19 Shannon Angelo RN is Primary Nurse. vc1 02:46 Bryon Matthews MD is Referral Physician. sp4 03:15 Report received from SCOOTER Ortega. ha1 03:23 No provider procedures requiring assistance completed. IV discontinued, intact, ha1 bleeding controlled, No redness/swelling at site. Pressure dressing applied. 03:24 Provided Education on: follow up with surgical DrAfshan. ha1 Administered Medications: No medications were administered Medication: 02:21 VIS not applicable for this client. vc1 Outcome: 02:46 Discharge ordered by . sp4 03:23 Discharged to home ambulatory, with family. ha1 03:23 Condition: stable 03:23 Discharge instructions given to patient, Instructed on discharge instructions, follow up and referral plans. Demonstrated understanding of instructions, follow-up care. 03:26 Patient left the ED. ha1 Signatures: Lluvia Pastrana kj1 Shannon Angelo, SCOOTER RN vc1 Elisabeth Hall RN RN ha1 Naheed Tim RN RN pf1 Giorgi Rodriguez MD MD sp4
[2023-01-18 03:31] VITALS: TEMP 98.1
[2023-01-18 03:35] VITALS: BP 107/53; O2SAT 98
== END 2023-01-18 03:26 | disposition home or self-care (01) ==
LOC: ER 23:54
DX: K91.840 Postprocedural hemorrhage of a digestive system organ or structure following a digestive system procedure (principal); Z98.890 Other specified postprocedural states; Z88.1 Allergy status to other antibiotic agents; Z88.8 Allergy status to other drugs, medicaments and biological substances
CPT/HCPCS: 36415; 80053; 85027; 85610